=== PATIENT | male | born 1985 | race Caucasian/White ===

== ENCOUNTER 2022-11-23 09:18 | Day surgery (SDC) | payer OTHER ==
[2022-11-22 09:52] VITALS: BMI 21.9
[2022-11-23] MEDS ORDERED: Midazolam HCl 2 mg/2 ml Vial ONE (10:37)
[2022-11-23] MEDS ORDERED: Ondansetron PF 4 MG/2 ML Vial ONE (10:37)
[2022-11-23] MEDS ORDERED: fentaNYL 50 mcg/mL 1 mL Vial ONE (10:37)
[2022-11-23] MEDS ORDERED: PROPOFOL 40 ML ONE (10:38)
[2022-11-23] MEDS ORDERED: Lidocaine 1% PF 5 ML VIAL ONE (10:41)
[2022-11-23] MEDS ORDERED: PROPOFOL 20 ML ONE (11:24)
== END 2022-11-23 12:44 | disposition home or self-care (01) ==
LOC: CSHSDC 09:18
PROVIDERS: ATTEND Internal Medicine Gastroenterology
DX: Z12.11 Encounter for screening for malignant neoplasm of colon (principal); K64.9 Unspecified hemorrhoids; K92.2 Gastrointestinal hemorrhage, unspecified; F32.A Depression, unspecified; K21.9 Gastro-esophageal reflux disease without esophagitis; E78.5 Hyperlipidemia, unspecified; J45.909 Unspecified asthma, uncomplicated; G43.909 Migraine, unspecified, not intractable, without status migrainosus; G47.30 Sleep apnea, unspecified; Z80.0 Family history of malignant neoplasm of digestive organs; Z79.899 Other long term (current) drug therapy
CPT/HCPCS: J2250; J2405; J2704; J3010